=== PATIENT | female | born 2005 | race Caucasian/White ===

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

== ENCOUNTER 2023-09-09 01:38 | Emergency (ER) | payer MEDICAID, SELFPAY ==
[2023-09-09] MEDS ORDERED: Ibuprofen 200 MG TAB ONE (02:48)
[2023-09-09] MEDS ORDERED: AMOXicillin 250 MG CAP PO SCH (03:00)
[2023-09-09 03:06] LABS: SARS-CoV-2 NAA Rapid Test Not Detected (NotDetected)
== END 2023-09-09 03:00 | disposition home or self-care (01) ==
LOC: CSHERS 01:38
DX: H66.91 Otitis media, unspecified, right ear (principal); Z20.822 Contact with and (suspected) exposure to COVID-19
CPT/HCPCS: 99283